=== PATIENT | female | born 1990 | race Hispanic/Latino ===

== ENCOUNTER 2021-01-04 20:48 | Emergency (ER) | payer OTHER ==
[~2021-01-04] VITALS: Ht 152.4 cm; Wt 77.0 kg
[~2021-01-04 20:48] MED LIST: IBUPROFEN600 MG PO; LORTAB 7.57.5 MG; PRENATA4 PO
[2021-01-04 21:48] LABS: HEMATOCRIT 43.2 % (37.0-47.0); HEMOGLOBIN 14.5 g/dl (12.0-16.0); IMMATURE GRANULOCYTES 0.2 % (0.0-5.0); MEAN CELL VOLUME 91.5 fL CALC (80.0-100.0); MEAN CORPUSCULAR HGB 30.7 pG CALC (26.0-32.0); MEAN CORPUSCULAR HGB CONC 33.6 g/dL CAL (32.0-36.0); NEUT# 5.64 thou/uL (2.00-7.15); RED BLOOD COUNT 4.72 mill/uL (4.20-5.60)
[2021-01-04 21:50] LABS: URINE BILIRUBIN - DIPSTICK NEGATIVE (NEGATIVE); URINE BLOOD DIPSTICK NEGATIVE (NEGATIVE); URINE COLOR YELLOW; URINE GLUCOSE - DIPSTICK NEGATIVE (NEGATIVE); URINE KETONE NEGATIVE (NEGATIVE); URINE LEUK ESTERASE TRACE (NEGATIVE); URINE PROTEIN - DIPSTICK NEGATIVE (NEG-TRACE); URINE SPECIFIC GRAVITY 1.015; URINE UROBILINOGEN - DIPSTICK 0.2 E.U./dL (0.2)
[2021-01-04 21:53] LABS: URINE NITRITE - DIPSTICK NEGATIVE (Negative)
[2021-01-04] MEDS ORDERED: ZOFRAN4 MG/TAB PO (22:01)
[2021-01-04 22:07] LABS: ALBUMIN 3.6 g/dL (3.2-5.0); AMYLASE 71 u/l (30-110); ANION GAP 12 (6-22 (CALC)); BILIRUBIN, TOTAL 0.3 mg/dL (0.0-1.4); BUN 10 mg/dL (7-17); BUN/CREATININE RATIO 14 (12-20 (CALC)); CARBON DIOXIDE 22 mmol/l (22-30); CHLORIDE 105 mmol/l (95-108); CREATININE 0.7 mg/dL (0.5-1.0); GFR > 60 ML/MIN (>=60 (CALC)); GFR FOR AFR.AMER. > 60 ML/MIN (>=60 (CALC)); LIPASE 110 u/l (23-300); POTASSIUM 3.7 mmol/l (3.5-5.1); SGOT/AST 21 u/l (14-36); SODIUM 136 mmol/l (137-146); TOTAL PROTEIN 6.4 g/dL (6.3-8.2)
[2021-01-04 22:08] LABS: ALKALINE PHOSPHATASE 53 u/l (38-126)
[2021-01-04] MEDS ORDERED: PROTONIX40 MG PO (23:22)
[2021-01-04 23:50] VITALS: BP 112/70
== END 2021-01-04 23:54 | disposition home or self-care (01) ==
LOC: ED 20:48
PROVIDERS: Family Medicine
DX: K29.70 Gastritis, unspecified, without bleeding (principal); K29.81 Duodenitis with bleeding
CPT/HCPCS: Q9967; S0164

== ENCOUNTER 2021-03-22 07:46 | Day surgery (SDC) | payer OTHER ==
[~2021-03-22 07:46] MED LIST changes: +AUBRA PO; +NAPROXEN250 MG PO; +PROTONIX40 MG PO; +ZOFRAN4 MG/TAB PO
[2021-03-22 09:40] VITALS: BP 102/55
[2021-03-22] MEDS ORDERED: OMEPRAZOLE20 MG PO (09:48)
[2021-03-26] MEDS ORDERED: Levaquin PO (11:43)
[2021-03-26] MEDS ORDERED: AMOXICILLIN500 MG PO (11:43)
== END 2021-03-22 10:10 | disposition home or self-care (01) ==
LOC: ENDO 07:46 → ORM 08:40 → ENDO 10:10 → ORM 10:30
PROVIDERS: ATTEND Surgery
DX: K29.50 Unspecified chronic gastritis without bleeding (principal); K25.9 Gastric ulcer, unspecified as acute or chronic, without hemorrhage or perforation; B96.81 Helicobacter pylori [H. pylori] as the cause of diseases classified elsewhere; Z79.899 Other long term (current) drug therapy

== ENCOUNTER 2021-07-27 07:18 | Day surgery (SDC) | payer OTHER ==
[~2021-07-27] VITALS: Ht 152.4 cm; Wt 71.2 kg
[~2021-07-27 07:18] MED LIST changes: +AMOXICILLIN500 MG PO; +Levaquin PO; +OMEPRAZOLE DR40 MG PO; +OMEPRAZOLE20 MG PO; +SRONYX PO
[2021-07-27 09:42] VITALS: BP 88/57
== END 2021-07-27 09:54 | disposition home or self-care (01) ==
LOC: ORM 07:18
PROVIDERS: ATTEND Surgery
DX: K29.50 Unspecified chronic gastritis without bleeding (principal); K31.7 Polyp of stomach and duodenum; Z86.19 Personal history of other infectious and parasitic diseases

== ENCOUNTER 2024-05-21 09:57 | Emergency (ER) | payer OTHER ==
[~2024-05-21] VITALS: Ht 152.4 cm; Wt 75.0 kg
[~2024-05-21 09:57] MED LIST changes: +PROTONIX40 M2 PO
[2024-05-21] MEDS ORDERED: KETOROLAC TROMETHAMINE 30 MG/ML SDV IM ONE (10:05)
[2024-05-21 10:06] VITALS: BP 117/88
[2024-05-21 10:15] VITALS: BP 124/69
[2024-05-21 10:30] VITALS: BP 120/79
[2024-05-21 10:45] VITALS: BP 98/78
[2024-05-21] MEDS ORDERED: ONDANSETRON 4 MG/TAB ODT PO ONE (11:00)
[2024-05-21] MEDS ORDERED: MORPHINE SULFATE 4 MG/ML VIAL IM ONE (11:00)
[2024-05-21 11:15] VITALS: BP 104/70
[2024-05-21] MEDS ORDERED: MOTRIN800 MG PO (11:33)
[2024-05-21 12:02] VITALS: BP 104/70
== END 2024-05-21 12:17 | disposition home or self-care (01) ==
LOC: ED 09:57
DX: S82.841A Displaced bimalleolar fracture of right lower leg, initial encounter for closed fracture (principal); W01.0XXA Fall on same level from slipping, tripping and stumbling without subsequent striking against object, initial encounter